=== PATIENT | female | born 1970 | race African-American/Black ===

== ENCOUNTER 2018-03-24 22:50 | Inpatient (IN) | payer BC ==
[~2018-03-24] VITALS: Ht 162.6 cm; Wt 87.1 kg
[~2018-03-24 22:50] MED LIST: BENTYL 20 MG TA20 M1 PO; CLONIDINE HCL0.2 M2 PO; COMPAZINE10 MG PO; CREON PO; DARVOCET-N 1001 EACH PO; FISH OIL 500 M1 EACH PO; FISH OIL500 M1 PO; HYDROCHLOROTHIA25 M1 PO; K-DUR 20 MEQ T20 MEQ PO; LANTUS SC; MIRALAX255 GM PO; NORCO 5-325 TA1 EACH PO; NORVASC 5 MG TAB5 MG PO; NOVOLOG100 UNIT/1 SQ; PERCOCET 5-3251 EACH PO; PHENERGAN 25 MG25 M1 PO; PRENATAL; PROMETHAZINE12.5 M1 PO; PROTONIX40 MG PO; TOPROL XL50 MG PO; TRAMADOL 50 MG50 MG PO; ULTRAM 50MG TAB50 MG PO; XANAX 0.5 MG0.5 M1 PO
[2018-03-24 22:54] VITALS: BP 204/120
--- NOTE | 2018-03-24 23:08 | NUR ---
SENT PT TO BATHROOM TO ATTEMPT TO GET A URINE SPECIMEN PRIOR TO GETTING UNDRESSED.
[2018-03-24 23:52] LABS: ABSOLUTE NEUTROPHILS 6.9 thou/uL (1.4-8.2); BASOPHILS 1.4 % (0.0-2.0); EOSINOPHILS 0.5 % (0.0-3.0); HEMATOCRIT 39.2 % (37.0-47.0); HEMOGLOBIN 13.4 gm/dL (12.0-15.0); LYMPHOCYTES 41.7 % (24.0-44.0); MCH 31.1 pg (26.0-34.0); MCHC 34.1 g/dL (28.0-37.0); MCV 90.9 fL (80.0-100.0); MONOCYTES 5.4 % (1.0-8.0); PLATELET COUNT 350 thou/uL (150-400); RBC 4.31 mil/uL (4.20-5.00); RDW 13.4 % (10.5-14.5); WBC 13.5 thou/uL (4.0-11.0)
[2018-03-25] VITALS (7 sets, daily range): BP systolic 140–188; BP diastolic 87–122
[2018-03-25 00:06] LABS: ALBUMIN 3.9 g/dL (3.4-5.0); CALCIUM 9.6 mg/dL (8.5-10.1); CREATININE 0.8 mg/dL (0.6-1.0); POTASSIUM 3.4 mmol/L (3.5-5.1); TOTAL BILIRUBIN 0.2 mg/dL (<0.1-1.0); TOTAL PROTEIN 8.5 g/dL (6.4-8.2)
[2018-03-25 02:39] LABS: URINE BILIRUBIN NEGATIVE (Negative); URINE BLOOD TRACE (Negative); URINE CLARITY CLEAR; URINE COLOR YELLOW; URINE GLUCOSE-RANDOM* 1+ (Negative); URINE KETONES NEGATIVE (Negative); URINE LEUKOCYTES-REFLEX NEGATIVE (Negative); URINE NITRITE-REFLEX NEGATIVE (Negative); URINE PROTEIN (DIPSTICK) NEGATIVE (Negative); URINE UROBILINOGEN 0.2 E.U./dl (0.2-1.0)
[2018-03-25] MEDS ORDERED: NEURONTIN600 MG PO (05:26)
[2018-03-25] MEDS ORDERED: PERCOCET 10-321 EACH PO (05:28)
[2018-03-25] MEDS ORDERED: METOPROLOL ER-1 EACH PO (05:30)
[2018-03-25] MEDS ORDERED: LISINOPRIL40 MG PO (05:32)
[2018-03-25] MEDS ORDERED: NOVOLOG100 UNIT/1 SUBQ (05:33)
--- NOTE | 2018-03-25 06:39 | NUR ---
PT CAME TO THE UNIT FROM THE ED AROUND 0330. VSS BUT BP. BP WAS ELEVATED, CLONIDINE GIVEN. PT A&0X4. INTERMITENTLY TEARFUL. PT COMPLAINED OF RUQ AND LLQ ABD PAIN, HYDROMORPHNE GIVEN. ASSESSMENTS AND MEDS GIVEN ARE DOCUMENTED. FSBS HAS BEEN TRENDING UP SINCE PT GOT TO THE UNIT. BLOOD SUGAR AT 0512 WAS 183, THE THEN CURRENT INFUSION OF D10 AT 150 ML/HR, WAS REDUCED TO 75ML/HR(PER ANGELLA SOLIS'S ORDER. AN HOUR LATER WHEN BS WAS RECHECKED, FSBS WAS 270, ANGELLA SOLIS NOTIFIED, AND D10 WAS ORDERED TO BE D/C. THIS WAS DONE AT 0630 THIS AM. PT DENIES CURRENT N/V. PT APPEARS TO BE IN NO APPARENT DISTRESS, WILL CONTINUE TO MONITOR.
--- NOTE | 2018-03-25 14:11 | NUR ---
INITIAL ASSESSMENT: Reviewed chart and spoke with nursing and attending physician. Pt was admitted from home due to chronic pancreatitis/nausea/vomiting/hypoglycemia. HOME HEALTH TRAVEL OT consult ordered. Psych consult for hx of depression. SW met with pt at bedside. Introduced role of SW. Pt is alert/orientated x 4. Pt reports she lives at home with her spouse. Prior to admission, pt was independent with ADLs. No use of DME. No hx of HH services or SNF/Rehab placement. Pt reports that she has PCP at [facility], but is unable to recall name of PCP. Pt requested SW to confirm that her chart no longer states that she has Medicaid. Pt states she used to have Medicaid, but is now on her 's insurance. SW verified that her [employer] policy is the only insurance listed. Pt states she is nervous about the winter weather and the tests that she may be having tomorrow. Pt unable to recall what testing she will have. Awaiting input from psych. SW is following to assist as needed with discharge planning.
--- NOTE | 2018-03-25 14:23 | NUR ---
Assumed care of patient at 0700. Vitals have been stable. Patient is alert and oriented x4, but displays labile moods. Very pleasant, happy, joking with staff and then a few minutes later is sobbing and very unhappy. Psych consult called, awaiting Dr. Graham to round. CT abdomen obtained and results as charted - Dr. Anderson consulted due to CT abdomen results and patient is now off unit for pelvic US. Still with complaints of right upper and left lower abdominal pain. Partially controlled with PRN meds. No complaints of nausea. Has been kept NPO except meds. D5 infusing per orders. Accuchecks q 6 hours - blood sugars have stayed stable. Patient up ad christianne in room, steady gait. Has walked hallway with staff a few times. Not yet progressing towards POC. Will continue to monitor.
[2018-03-26 04:49] VITALS: BP 144/86
[2018-03-26 05:21] LABS: HEMATOCRIT 35.7 % (37.0-47.0); HEMOGLOBIN 11.6 gm/dL (12.0-15.0); MCH 30.2 pg (26.0-34.0); MCHC 32.5 g/dL (28.0-37.0); MCV 92.9 fL (80.0-100.0); RBC 3.84 mil/uL (4.20-5.00); RDW 14.1 % (10.5-14.5); WBC 8.6 thou/uL (4.0-11.0)
--- NOTE | 2018-03-26 05:30 | NUR ---
Pt. has requested for IV benadryl x1 dose last night to help with itching and to help her rest. She refused to take po benadryl. MENTAL HEALTH COUNSELOR notified and order received. She has labile moods , pleasant at times ,crying one minute then singing then agitated and paranoid. One of medical staff specialist heard her crying and when he went to her room to check on her she was very upset and screaming. Pt. reassured that staff is concern about her and went to room to make sure she is safe. She has requested for her pain med every 3 hrs . She informed me that her pain med is supposed to be given every 2 hrs instead of every 3 hrs. Despite explaining to her what the doctor has ordered and showing it to her she still is very insistent that it is supposed to be given every 2 hrs. She verbalized " I am the patient and I know what was ordered for me ". Informed her that order has not changed since arrival on the floor. She requested for the rn discharge and verbalized she knows of nurses that has been found in the closet in rigor mortis due to narcotics. While waiting for rn discharge to talk to her , she has been pacing in hallway and walking very fast. lasting room supervisor talked to pt. and informed her about frequency of her pain med. Pt. has been awake most of the night and only slept for a short period of time this am. While awake she requested for snacks and drinks.No nausea or vomiting. She is in a pleasant mood again this am and appreciative of the care she receives. Will continue to monitor.
[2018-03-26 05:37] LABS: ALBUMIN 3.4 g/dL (3.4-5.0); CALCIUM 9.3 mg/dL (8.5-10.1); CREATININE 0.9 mg/dL (0.6-1.0); PHOSPHORUS 3.1 mg/dL (2.5-4.9); POTASSIUM 4.2 mmol/L (3.5-5.1)
--- NOTE | 2018-03-26 06:36 | NUR ---
Pt. very tearful this am and talking about a friend who has speech impediment and feels sorry for him. Reassurance given.
[2018-03-26 07:19] VITALS: BP 155/90
[2018-03-26 11:52] VITALS: BP 156/104
[2018-03-26 12:29] VITALS: BP 156/104
--- NOTE | 2018-03-26 13:28 | NUR ---
Assumed care of patient at 0700. Vitals have been stable. Alert and oriented x4. Still with labile affect; crying at times, otherwise very happy and singing / laughing. Complaints of abdominal pain, partially controlled with PRN Dilaudid. Denies nausea. Tolerating diet. Up ad christianne in room. Walked hallways with nursing this morning. Dr Anderson rounded this morning and states pelvic US shows decrease in cyst size. Discharge orders received. Reviewed instructions with patient at bedside. Verbalizes understanding. IV and telemetry discontinued. Belongings gathered. Patient states no items locked in security and no meds in pharmacy. Awaiting ride at this time. Will transport via wheelchair to discharge home.
--- NOTE | 2018-03-26 14:46 | NUR ---
DISCHARGE NOTE: SW reviewed chart and spoke with nursing and attending physician. Psych consulted and attempted to evaluate pt yesterday. Pt declined consultation. Pt is medically stable for discharge home today. No discharge needs identified at this time. SW is available to assist should needs arise.
== END 2018-03-26 15:01 | disposition home or self-care (01) | DRG 758 ==
LOC: ER 22:50 → 3W 03-25 01:41 → EROBS 03-25 01:41 → 3W 03-25 03:11 → ENTRNSPT 03-26 14:38 → EDTRNSPTSTS 03-26 14:41 → 3W 03-26 15:01
PROVIDERS: Emergency Medicine; ADMIT Hospitalist
DX: N76.0 Acute vaginitis (principal); K86.1 Other chronic pancreatitis; F11.20 Opioid dependence, uncomplicated; A54.9 Gonococcal infection, unspecified; E10.649 Type 1 diabetes mellitus with hypoglycemia without coma; G89.29 Other chronic pain; R10.9 Unspecified abdominal pain; E87.6 Hypokalemia; N83.209 Unspecified ovarian cyst, unspecified side; I10 Essential (primary) hypertension; E10.40 Type 1 diabetes mellitus with diabetic neuropathy, unspecified; Z87.891 Personal history of nicotine dependence; Z90.81 Acquired absence of spleen; Z88.6 Allergy status to analgesic agent; Z88.8 Allergy status to other drugs, medicaments and biological substances
CPT/HCPCS: 10879

== ENCOUNTER 2018-04-07 20:17 | Inpatient (IN) | payer BC ==
[~2018-04-07] VITALS: Ht 165.1 cm; Wt 86.2 kg
[~2018-04-07 20:17] MED LIST changes: +CREON DR 12,001 EACH PO; -CREON PO; +LISINOPRIL40 MG PO; +METOPROLOL ER-1 EACH PO; +NEURONTIN600 MG PO; +NOVOLOG100 UNIT/1 SUBQ; +PERCOCET 10-321 EACH PO
[2018-04-07 20:18] VITALS: BP 182/111
[2018-04-07 20:52] LABS: HEMATOCRIT 37.4 % (37.0-47.0); HEMOGLOBIN 12.5 gm/dL (12.0-15.0); MCH 31.1 pg (26.0-34.0); MCHC 33.4 g/dL (28.0-37.0); MCV 93.3 fL (80.0-100.0); PLATELET COUNT 339 thou/uL (150-400); RBC 4.02 mil/uL (4.20-5.00); RDW 14.4 % (10.5-14.5); WBC 10.5 thou/uL (4.0-11.0)
[2018-04-07 21:01] LABS: CALCIUM 9.5 mg/dL (8.5-10.1); CREATININE 0.9 mg/dL (0.6-1.0)
[2018-04-07 21:03] LABS: POTASSIUM 2.5 mmol/L (3.5-5.1)
[2018-04-07 21:07] LABS: ALBUMIN 3.8 g/dL (3.4-5.0); TOTAL BILIRUBIN 0.1 mg/dL (<0.1-1.0); TOTAL PROTEIN 7.9 g/dL (6.4-8.2)
[2018-04-07 21:32] LABS: MAGNESIUM 1.5 mg/dL (1.8-2.4); PHOSPHORUS 1.4 mg/dL (2.5-4.9)
[2018-04-07 21:52] LABS: ABSOLUTE NEUTROPHILS 3.5 thou/uL (1.4-8.2)
[2018-04-07 21:53] LABS: POLYCHROMASIA 1+; SCHISTOCYTES FEW; TARGET CELLS 1+
[2018-04-07 21:54] LABS: ANISOCYTOSIS 1+; PLATELET ESTIMATE NORMAL
[2018-04-08] VITALS (25 sets, daily range): BP systolic 127–173; BP diastolic 74–106
--- NOTE | 2018-04-08 00:13 | NUR ---
PATIENT GLUCOSE TO DECREASE TO CRITICALLY LOW LEVELS, RN SUSPECTED PATIENT USING HOME DOSE OF INSULIN, SECURITY CONTACTED TO REVIEW ITEMS IN PURSE. PATIENT VERY UPSET, YELLING AT STAFF AND STATES "I AM LEAVING, I AM GOING HOME, DO NOT TOUCH ME." PT STATED STAFF LOOKS LIKE THEY TAKE DRUGS AND DID NOT ATTEND NURSING SCHOOL. THREATENS STAFF WITH LAWSUITS AND DEMANDS STAFF TO LEAVE ROOM. ADVISED PATIENT THAT LEAVING AMA WITH LOW BLOOD GLUCOSE IS DETRIMENTAL TO HEALTH AND WOULD BE BENEFICIAL TO STAY AND BE TREATED. CHARGE NURSE KYLER IN R0OM THROUGHOUT ISSUE, ALSO ADVISING PATIENT TO REMAIN IN ER. PATIENT INSISTS ON LEAVING. INFORMED PATIENT OF NEED TO SIGN AMA FORM, HAVE IVs D/Thomas. PATIENT UNABLE TO HEAR WHAT STAFF MEMBERS ARE SAYING, CONTINUES TO TALK OVER THEM, DEMANDS TO SPEAK ONLY TO PHYSICIAN W/O OTHER STAFF MEMBERS IN ROOM. INFORMED PATIENT THAT SECURITY WILL STAY IN ROOM WITH PATIENT AND PHYSICIAN. PATIENT AGREEABLE TO REMAIN PATIENT AND BE TREATED FOR LOW BLOOD GLUCOSE.
--- NOTE | 2018-04-08 01:21 | NUR ---
pt arrived from ED via stretcher in stable condition around 0045. pt oriented to room and surroundings. allowed for questions. will admit pt to unit and carry out orders. pt was placed on telemtry.
[2018-04-08] MEDS ORDERED: TOPROL XL25 MG PO (01:29)
[2018-04-08] MEDS ORDERED: OMEGA-31000 M1 PO (01:32)
--- NOTE | 2018-04-08 05:55 | NUR ---
PT CURRENTLY SITTING UP IN BED WASHING SELF. PT SR ON MONITOR REMAINS ON RA SATS 100% PT REMAINS HTN, GROWTH MEDIA MIXER MUSHROOM AWARE. PT AM LABS TO BE DRAWN. PT REQUIRED SEVERAL DOSES OF PAIN MEDICATION THROUGHOUT SHIFT.
[2018-04-08 06:37] LABS: CALCIUM 8.5 mg/dL (8.5-10.1); CREATININE 0.7 mg/dL (0.6-1.0); MAGNESIUM 2.3 mg/dL (1.8-2.4); PHOSPHORUS 2.8 mg/dL (2.5-4.9)
[2018-04-08 06:40] LABS: POTASSIUM 4.6 mmol/L (3.5-5.1)
--- NOTE | 2018-04-08 08:31 | EKG ---
[address] [place] [address] ELECTROCARDIOGRAM REPORT Name: FITO PATTERSON Evelyne Room #: 236-P ADM IN M.R.#: [id number] ������������������ Admission: 04/07/18 ������������������ Attend Phys: Antony Eduardo MD Discharge: ������������������ Date of : 72 Report #: [id number] ����������������������������������������������������������������� [id number] THIS REPORT FOR: //name// [facility] ED Test Date: 2018-04-07 Test Time: 20:31:57 Pat Name: FITO PATTERSON Department: Room: 236 Gender: F Certified Respiratory Therapist: lucinda : 1970 Requested By: Jose Rollins Order Number: [id number] MD: Randall Potter Measurements Intervals [place] Rate: 108 P: 61 NE: 187 QRS: 28 QRSD: 90 T: -8 QT: 329 QTc: 441 Interpretive Statements Sinus tachycardia Borderline T abnormalities, inferior leads Artifact in lead(s) I,II,III,aVR,aVL Compared to ECG 03/01/2010 13:38:05 T-wave abnormality now present Electronically Signed On 04-08-2018 8:30:42 DISTRIBUTION DRIVER by Randlal Potter [email or web address] ��������������������������������������������� <ELECTRONICALLY SIGNED> ���������������������������������������� By: Randall Potter MD, [facility] ��������������������������������������������� 04/08/18 0830 30 30 Randall Potter MD, [facility] /EPI
--- NOTE | 2018-04-08 10:30 | NUR ---
PT ALERT, ORIENTED. PT IRRITABLE INTERMITTENTLY, THEN WHEN RN ADMINISTERING PAIN MED PER HER REQUEST, SHE IS VERY PLEASANT AND TALKATIVE. WHEN DR. HERRING ROUNDED, PT HAD NO EYE CONTACT WITH HIM AND STARED IN THE OTHER DIRECTIONS DURING THE ENTIRE CONVERSATION. MORPHINE IV GIVEN FOR C/O OF ABDOMINAL PAIN ALONG WITH ZOFRAN AND BENADRYL IV PER HER REQUEST. SR, ROOM AIR, LUNGS CLEAR/DIM, ABD SOFT TENDER, CLEAR LIQUID DIET HOWEVER DEFERRING CLEAR LIQUID DIET. VOIDING IN BEDSIDE COMMODE. TRANSFER ORDER CC TELE PENDING.
--- NOTE | 2018-04-08 16:45 | NUR ---
DR. ARREAGA PRESENT TO SEE PT. PT CALM, NO DISTRESS. REPORT GIVEN TO TIGIST DICKERSON. PT TRANSFERRING TO TELE ROOM #353 PER WHEELCHAIR.
--- NOTE | 2018-04-08 19:03 | NUR ---
ASSUMED CARE OF PT THIS EVENING A TRANSFER FROM ICU. ALERT AND ORIENETD TIMES FOUR. C/O PAIN PRN PAIN MEDICATION GIVEN WITH SOME RELEIF. IVF INFUSING PER ORDER. PT UP AB LEO WITH STEADY GAIT. PT SLOWLY PROGRESSING TOWRADS POC GOALS.
[2018-04-09 01:10] VITALS: BP 147/98
--- NOTE | 2018-04-09 03:59 | NUR ---
Assumed care of pt at 1900. Pt a&o x4. Room air. Able to ambulate independently in room. Q4h accu checks. Pt requests something to eat. LIFE ENRICHMENT ASSISTANT on duty notified, new order noted. LIFE ENRICHMENT ASSISTANT on duty also notified of pt blood sugar trending up. LIFE ENRICHMENT ASSISTANT states to continue to monitor pt blood sugar and might need a low dose sliding scale insulin in the am. Pt complaints of abd pain. Prn pain med administered. Call light within reach. Will continue to monitor and assist with needs.
[2018-04-09 05:29] VITALS: BP 140/70
--- NOTE | 2018-04-09 09:30 | NUR ---
PT WAS ASSESS AND ASKED FOR BENEDRYL WHICH WAS DISCONTINUED..SHE BECAME VERY ANGRY AND IMMEDIATELY STATED DR LOPEZ WAS INAPPROPRIATE WITH HER AND SHE WANTED TO SEE HIM. NURSE CYLINDER WORKER RUFINO WAS CALLED AND SHE CALLED TO BOTH SPEAK WITH PATIENT.
--- NOTE | 2018-04-09 11:00 | NUR ---
PT IV X 2 DC;D AND INFORMED HER I WOULD BE BACK WITH DISCHARGE PAPERWORK. A FEW MINUTES LATER SHE WAS SPOTTED BY DIRECTOR OF PRODUCT DESIGN LEAVING ON ELEVATOR WITH FAMILY MEMBER BEFORE DISCHARGE WORK WAS COMPLETED POR SIGNED.
[2018-04-09 11:04] VITALS: BP 140/70
== END 2018-04-09 11:00 | disposition home or self-care (01) | DRG 638 ==
LOC: ER 20:17 → EROBS 22:01 → ICU 22:01 → 3W 22:01 → ICU 04-08 00:37 → 3W 04-08 17:26
PROVIDERS: Emergency Medicine; Nurse Practitioner Family; ADMIT Internal Medicine
DX: E10.649 Type 1 diabetes mellitus with hypoglycemia without coma (principal); K86.1 Other chronic pancreatitis; I10 Essential (primary) hypertension; E10.42 Type 1 diabetes mellitus with diabetic polyneuropathy; R10.9 Unspecified abdominal pain; E87.6 Hypokalemia; E83.42 Hypomagnesemia; E78.00 Pure hypercholesterolemia, unspecified; E83.39 Other disorders of phosphorus metabolism; G89.4 Chronic pain syndrome; K86.89 Other specified diseases of pancreas; Z90.81 Acquired absence of spleen; Z88.6 Allergy status to analgesic agent; Z88.8 Allergy status to other drugs, medicaments and biological substances; Z87.891 Personal history of nicotine dependence; Z79.4 Long term (current) use of insulin; Z79.899 Other long term (current) drug therapy
CPT/HCPCS: 10879

== ENCOUNTER 2018-04-10 22:58 | Inpatient (IN) | payer BC ==
[~2018-04-10] VITALS: Ht 162.6 cm; Wt 91.4 kg
[~2018-04-10 22:58] MED LIST changes: +OMEGA-31000 M1 PO; +TOPROL XL25 MG PO
[2018-04-10 23:04] VITALS: BP 158/91
--- NOTE | 2018-04-10 23:25 | NUR ---
ATTEMPTED TO GET BLOOD SUGAR IN TRIAGE. PT WAS SITTING ON CHAIR IN TRIAGE AND WAS VERY ANXIOUS. PT STATES THAT SHE IS NOT FEELING WELL AND HER BLOOD SUGAR IS LOW. RN LOOKED AWAY FOR A MOMENT AND IN THAT MOMENT PT HAD WAS FOUND ON THE FLOOR FACEDOWN. PT WAS NOT RESPONDING TO RN INITIALLY AFTER THE FALL. RN CALLED FOR HELP AND PT ASSISTED TO HER BACK AND C-SPINE MAINTAINED UNTIL A C-COLLAR WAS PLACED ON PT. BED BROUGHT OUT FROM THE BACK FOR PT. PT WAS NOT ABLE TO FOCUS ON QUESTIONS WHEN SHE WAS ASKED. PRIOR TO GETTING PT UP FROM FLOOR, PT SUDDENLY JERKED TO SITTING UP POSITION AND ASSISTED TO A SIDE LYING POSITION UNTIL PT CALMED. PT HAD WOKE UP AND ASKED, "WHAT IS GOING ON WITH ME?" C-COLLAR WAS PLACED ON PT AND THEN LIFTED TO BED. BED WAS PUSHED TO ROOM 8. IN ROUTE TO ROOM, PT FLOPPED IN THE BED AND NEARLY CAME OUT OF THE BED SEVERAL TIMES. PT WOULD THEN SAY, "I'M SORRY." PT BROUGHT TO ROOM 8 AND PRIMARY NURSE TOOK OVER CARE.
--- NOTE | 2018-04-10 23:46 | NUR ---
LEFT FRIDAY, FROM 356
[2018-04-11] VITALS (13 sets, daily range): BP systolic 145–191; BP diastolic 80–162
[2018-04-11 00:10] LABS: HEMOGLOBIN 13.1 gm/dL (12.0-15.0); MCH 31.3 pg (26.0-34.0); MCHC 33.7 g/dL (28.0-37.0); MCV 93.1 fL (80.0-100.0); PLATELET COUNT 357 thou/uL (150-400); RBC 4.19 mil/uL (4.20-5.00); RDW 14.3 % (10.5-14.5); WBC 6.7 thou/uL (4.0-11.0)
[2018-04-11 00:27] LABS: ANION GAP 11 mmol/L (7-16); BUN 11 mg/dL (7-18); CALCIUM 9.8 mg/dL (8.5-10.1); CHLORIDE 105 mmol/L (98-107); CO2 28 mmol/L (21-32); GLUCOSE 56 mg/dL (74-106); SODIUM 144 mmol/L (136-145)
[2018-04-11 00:36] LABS: ALBUMIN 3.8 g/dL (3.4-5.0); LIPASE 38 U/L (73-393); SGOT 18 U/L (15-37); SGPT 29 U/L (30-65); TOTAL BILIRUBIN 0.1 mg/dL (<0.1-1.0); TROPONIN-I <0.06 ng/mL (<0.06)
[2018-04-11 00:44] LABS: ABSOLUTE NEUTROPHILS 2.1 thou/uL (1.4-8.2)
[2018-04-11 01:05] LABS: URINE BILIRUBIN NEGATIVE (Negative); URINE BLOOD 2+ (Negative); URINE CLARITY CLEAR; URINE COLOR YELLOW; URINE GLUCOSE-RANDOM* NEGATIVE (Negative); URINE KETONES NEGATIVE (Negative); URINE LEUKOCYTES-REFLEX NEGATIVE (Negative); URINE NITRITE-REFLEX NEGATIVE (Negative); URINE PROTEIN (DIPSTICK) NEGATIVE (Negative); URINE UROBILINOGEN 0.2 E.U./dl (0.2-1.0)
[2018-04-11 01:12] LABS: AMP/METHAMP Negative (Negative); BARBITURATES Negative (Negative); BENZODIAZEPINES Negative (Negative); COCAINE Negative (Negative); METHADONE Negative (Negative); OPIATES POSITIVE (Negative); PCP POSITIVE (Negative)
[2018-04-11 01:12] LABS: SALICYLATE 5.8 mg/dL (2.8-20.0)
[2018-04-11 01:30] LABS: BACTERIA-REFLEX None Seen /HPF (None Seen); CRYSTALS None Seen /LPF (None Seen); HYALINE CASTS 0-3 Few /LPF (None Seen); MUCUS 0-3 Light strn/LPF (None Seen); SQUAMOUS >10 Many /LPF (0-3); TRANSITIONAL EPITHEL CELL 0-3 Few /LPF (None Seen); URINE RBC 0-2 Rare /HPF (0-2); URINE WBC-REFLEX None Seen /HPF (0-5)
--- NOTE | 2018-04-11 02:52 | NUR ---
PT TOLD THIS NURSE "YOU'RE NOT MY NURSE ANYMORE", STATING ASSUMPTION THAT THIS NURSE WAS ACCUSING PT OF USING MEDICATIONS OR DRUGS. PT ASKED THIS NURSE FOR NAME AND NAME WAS GIVEN, PT THEN WROTE DOWN THIS NURSES NAME AND THE TIME ON A PINK STICKY NOTE THAT WAS ON BIBLE, STATING WOULD REPORT THIS NURSE.
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
--- NOTE | 2018-04-11 07:17 | NUR ---
0300: PT ARRIVED TO ICU FROM ED FOR HYPOGLYCEMIA, PT TRANSFERRED TO ICU BED AND CONNECTED TO MONITORS PER ICU STANDARDS. BENDING PRESS OPERATOR MARY CARED FOR PATIENT UNTIL 0500 AND GAVE THIS RN REPORT, DURING HER CARE PT RECEIVED OXYCODONE AND COMPAZINE AND STARTED IVF'S PER CELLOPHANE BAG MACHINE OPERATOR VIVIANA NEGRON. SEE BLOOD GLUCOSES PER ACCU DOSES, BG INCREASED AFTER TURKEY SANDWICH, CHASE CRACKERS AND SODA. ADMISSION COMPLETE, VSS, NO DISTRESS NOTED. NOTIFIED MARIANELA MICHELLE OF ELEVATED BG 225 - ORDER TO DECREASE D5W IVF TO 50ML/HR AND TITRATE ACCORDING TO BG'S. PT CURRENTLY RESTING QUIETLY WITH EYES CLOSED, PLEASANTLY. REPORT GIVEN TO ROZ ESCOTO.
--- NOTE | 2018-04-11 12:48 | EKG ---
[place] [address] [facility] [place] [address] ELECTROCARDIOGRAM REPORT Name: FITO PATTERSON Evelyne Room #: 244-P ADM IN M.R.#: [id number] ������������������ Admission: 04/11/18 ������������������ Attend Phys: Antony Eduardo MD Discharge: ������������������ Date of : 72 Report #: [id number] ����������������������������������������������������������������� [id number] THIS REPORT FOR: //name// [facility] ED Test Date: 2018-04-11 Test Time: 00:01:39 Pat Name: FITO PATTERSON Department: Room: 244 Gender: F Dev Technical Mgr: CHIKI : 1970 Requested By: Guanaco Rome Order Number: [id number] MD: Randall Potter Measurements Intervals [place] Rate: 102 P: 63 GA: 173 QRS: 52 QRSD: 88 T: -44 QT: 348 QTc: 454 Interpretive Statements Sinus tachycardia Probable LVH with secondary repol abnrm Compared to ECG 04/07/2018 20:31:57 Nonspecific change in the T wave abnormality Electronically Signed On 04-11-2018 12:48:44 PUBLIC INFORMATION SPECIALIST by Randall Potter [email or web address] ��������������������������������������������� <ELECTRONICALLY SIGNED> ���������������������������������������� By: Randall Potter MD, [facility] ��������������������������������������������� 04/11/18 1248 0001 0001 Randall Potter MD, [facility] /EPI
--- NOTE | 2018-04-11 16:29 | NUR ---
PT BLOOD SUGAR ELEVATED AT SHIFT CHANGE. D5 FLUIDS D/C'D. NS STARTED. DR SALAMANCA AT BEDSIDE AND NEW ORDERS OBTAINED FOR SSI. PT HYPOGLYCEMIC AT LUNCHTIME, GIVEN APPLE JUICE AND MEAL TRAY. PT STATED SHE FELT NAUSEAOUS AND THEN LATER ASKED FOR A SECOND MEAL TRAY. PT EDUCATED IN CONTROLLING CARB INTAKE AND BLOOD SUGARS. PT DISINTERESTED IN EDUCATION. PT C/O CONSTANT ABD PAIN, REQUESTING A PAIN SHOT AND PRN MEDS. PT HAS SLEPT MOST OF THE AFTERNOON. PT MED/SURG STATUS, AWAITING BED ASSIGNMENT.
--- NOTE | 2018-04-11 20:47 | NUR ---
ASSESSMENT PER DOCUMENTATION. PT'S VSS, NO DISTRESS NOTED ON ROOM AIR. PT C/O 10/ ABDOMINAL PAIN - NOT NEW, OXYCODONE GIVEN - SEE EMAR. PT RESTED QUIETLY WITH EYES CLOSED. PT TRANSFERRED TO ROOM 240 W/ MED SURG ORDERS, PT STABLE PRIOR TO TRANSFER. NS IVF INSUING WITHOUT DIFFICULTY. PT VOICED NO CONCERNS. REPORT GIVEN TO TIGIST DE LA PAZ.
[2018-04-12 00:09] LABS: CORTISOL RANDOM 12.9 ug/dL (())
[2018-04-12 04:19] VITALS: BP 155/104
--- NOTE | 2018-04-12 05:29 | NUR ---
ASSUMED PT CARE 2200. PT ALERT AND ORIENTED. REASSESSMENT COMPLETE. PT REPORTS ABD PAIN /, SEMI CONTROLLED WITH MEDICATION. IV DRESSING C/D/I, NO SIGNS OF INFILTRATION. VSS. BLOOD SUGAR LEVEL TREATED AT HS, WILL DOUBLE CHECK 0600. PT CALL LIGHT AND PERSONAL BELONINGS WIOTHIN REACH. WILL CONTINUE POC UNTIL EOS.
[2018-04-12 06:52] LABS: ALBUMIN 3.2 g/dL (3.4-5.0); CALCIUM 9.3 mg/dL (8.5-10.1); MAGNESIUM 1.7 mg/dL (1.8-2.4); POTASSIUM 4.2 mmol/L (3.5-5.1); TOTAL BILIRUBIN 0.1 mg/dL (<0.1-1.0); TOTAL PROTEIN 6.8 g/dL (6.4-8.2)
[2018-04-12 08:00] VITALS: BP 160/101
[2018-04-12] MEDS ORDERED: GABAPENTIN 100100 MG PO (10:45)
[2018-04-12] MEDS ORDERED: ZOFRAN ODT4 MG DISSOLVE (10:45)
[2018-04-12] MEDS ORDERED: ACETAMINOPHEN325 M1 PO (10:45)
[2018-04-12 11:40] VITALS: BP 155/104
--- NOTE | 2018-04-12 12:01 | NUR ---
PT ASSESSED AT START OF SHIFT. PT VERY CALM AND PLEASANT. DR. SALAMANCA IN TO SEE PT AND DISCHARGE HER. HERE TO TAKE PT HOME. IV DC'D AND PT DRESSING TO GO HOME. INFORMED PT I WOULD BE RIGHT BACK W/ HER PAPERWORK AND SHE COULD GO. WENT BACK TO THE ROOM AND PT GONE W/ ALL BELONGINGS. CALLED DRIER OPERATOR HEAD TO PAGE PT BUT NO ANSWER. CALLED CELL AND HE ANSWERED. EXPLAINED PT LEFT PAPERWORK AND HER PRESCRIPTIONS. HE SAID THEY WERE ON THE FREEWAY ALREADY. EXPLAINED TO HIM WHENEVER SHE IS IN THE HOSPITAL THERE IS PAPERWORK SHE NEEDS TO SIGN BEFORE DISCHARGE AND HE MAY NEED TO MAKE SURE SHE GETS THAT. HE DID NOT COMMIT TO RETURNING FOR PAPERS OR PRESCRIPTIONS. RACE BOARD ATTENDANT AND DR. SALAMANCA NOTIFIED.
[2018-04-12 13:11] LABS: C-PEPTIDE 3.8 ng/mL (1.1-4.4); INSULIN 19.3 uIU/mL (2.6-24.9)
== END 2018-04-12 12:00 | disposition home or self-care (01) | DRG 638 ==
LOC: ER 22:58 → EROBS 04-11 01:25 → ICU 04-11 03:21 → 4E 04-11 22:09
PROVIDERS: Emergency Medicine; ADMIT Internal Medicine
DX: E10.649 Type 1 diabetes mellitus with hypoglycemia without coma (principal); F11.20 Opioid dependence, uncomplicated; K86.1 Other chronic pancreatitis; G89.4 Chronic pain syndrome; F16.10 Hallucinogen abuse, uncomplicated; I10 Essential (primary) hypertension; E87.6 Hypokalemia; F41.9 Anxiety disorder, unspecified; F32.9 Major depressive disorder, single episode, unspecified; F25.9 Schizoaffective disorder, unspecified; N83.202 Unspecified ovarian cyst, left side; F60.3 Borderline personality disorder; E10.42 Type 1 diabetes mellitus with diabetic polyneuropathy; Z90.81 Acquired absence of spleen; Z79.899 Other long term (current) drug therapy; Z88.5 Allergy status to narcotic agent; Z88.6 Allergy status to analgesic agent; Z88.8 Allergy status to other drugs, medicaments and biological substances; Z87.891 Personal history of nicotine dependence; Z91.14 Patient's other noncompliance with medication regimen; Z90.411 Acquired partial absence of pancreas
CPT/HCPCS: 10183

== ENCOUNTER 2018-05-09 02:59 | Inpatient (IN) | payer BC ==
[2018-05-09] VITALS (7 sets, daily range): BP systolic 145–211; BP diastolic 92–116
[~2018-05-09] VITALS: Ht 162.6 cm; Wt 90.3 kg
--- NOTE | ~2018-05-09 | HC ---
[facility] [place] [address] CONSULTATION Name: FITO PATTERSON Room #: 358-P DIS IN M.R.#: [id number] Admission: 05/09/18 ������������������ Attend Phys: Antony Eduardo MD Discharge: 05/10/18 ������������������ Date of : 72 Report #: [id number] THIS REPORT FOR: //name// CC: Darrian Eduardo DATE OF SERVICE: 05/10/2018 IDENTIFICATION: Psychiatric consultation is requested for psychosis. HISTORY OF PRESENT ILLNESS: The patient is a 48-year-old female with a history of recurrent PCP abuse. She has presented to the hospital previously with symptoms of psychosis including delusions. She has been noted to be irritable and paranoid with staff documenting nursing interventions, talking about becoming a surgeon and suing the hospital. She has left the hospital previously against medical advice. It is also noted that when she does leave the hospital, she takes every item with her that she can including all soaps and other hospitality items. She has previously been seen by Dr. Graham in consultation in 03/2018, but the patient was uncooperative with interview at that time. Currently, it is unclear whether the patient has psychosis in the absence of PCP abuse. In addition to the above, it is noted that the patient has presented recurrently with hypoglycemia. It is suspected that she may be administering extra insulin in order to gain admission to the hospital. She is noted to have some drug-seeking behavior, asking frequently for IV Benadryl. On interview today, the patient states that she is "fine" and just wants to be left to sleep. ALLERGIES: List is reviewed available in the chart. PSYCHIATRIC MEDICATION ALLERGIES INCLUDE THORAZINE AND HALDOL. MEDICATIONS: Reviewed include Seroquel 25 mg at bedtime. PAST MEDICAL HISTORY: Insulin-dependent diabetes, chronic pancreatitis, chronic pain, hypertension, peripheral neuropathy. FAMILY HISTORY: Unknown. SOCIAL HISTORY: The patient is reported to have a history of smoking cigarettes. It appears that she lives independently. LABORATORIES: Urine drug screen was positive for PCP. MENTAL STATUS EXAMINATION: She is resting in hospital bed with all of the lights out at 10:00 in the morning. She is immediately suspicious and paranoid when I introduced myself as the psychiatrist. She states that she is "fine." [facility] [address] [place] [address] CONSULTATION Name: FITO PATTERSON Room #: 358-P DIS IN M.R.#: [id number] Admission: 05/09/18 ������������������ Attend Phys: Antony Eduardo MD Discharge: 05/10/18 ������������������ Date of : 72 Report #: [id number] She does deny any suicidal or homicidal ideation. She does demonstrate paranoid delusions. Affect irritable. Thought process concrete. Insight and judgment poor. DIAGNOSIS: Psychosis, not otherwise specified, rule out PCP-induced psychosis versus chronic schizophrenia. PLAN: Increase nighttime Seroquel to 100 mg and Seroquel 50 mg every 4 hours as needed and in case of severe agitation, we will utilize Geodon 10 mg intramuscular every 6 hours as needed. From the psychiatric standpoint, the patient can discharged to home at her request or when she is medically stable. Thank you for this consultation. We will follow up as needed. ��������������������������������������������� ���������������������������������������� By: ��������������������������������������������� 1020 1405 Tila Ryan MD /nt
[~2018-05-09 02:59] MED LIST changes: +ACETAMINOPHEN325 M1 PO; +GABAPENTIN 100100 MG PO; +ZOFRAN ODT4 MG DISSOLVE
[2018-05-09 03:51] LABS: ABSOLUTE NEUTROPHILS 4.2 thou/uL (1.4-8.2); BASOPHILS 0.6 % (0.0-2.0); EOSINOPHILS 0.4 % (0.0-3.0); HEMOGLOBIN 13.1 gm/dL (12.0-15.0); LYMPHOCYTES 49.1 % (24.0-44.0); MCHC 33.7 g/dL (28.0-37.0); MCV 92.1 fL (80.0-100.0); MONOCYTES 5.6 % (1.0-8.0); PLATELET COUNT 354 thou/uL (150-400); POLYS 44.3 % (36.0-66.0); RBC 4.23 mil/uL (4.20-5.00); RDW 14.3 % (10.5-14.5); WBC 9.4 thou/uL (4.0-11.0)
[2018-05-09 03:51] LABS: URINE BILIRUBIN NEGATIVE (Negative); URINE BLOOD 1+ (Negative); URINE CLARITY CLEAR; URINE COLOR YELLOW; URINE GLUCOSE-RANDOM* NEGATIVE (Negative); URINE KETONES NEGATIVE (Negative); URINE LEUKOCYTES-REFLEX NEGATIVE (Negative); URINE NITRITE-REFLEX NEGATIVE (Negative); URINE PROTEIN (DIPSTICK) NEGATIVE (Negative); URINE SPECIFIC GRAVITY <= 1.005 (1.005-1.035); URINE UROBILINOGEN 0.2 E.U./dl (0.2-1.0)
[2018-05-09 03:59] LABS: AMP/METHAMP Negative (Negative); BACTERIA-REFLEX None Seen /HPF (None Seen); BARBITURATES Negative (Negative); BENZODIAZEPINES Negative (Negative); CASTS None Seen /LPF (None Seen); COCAINE Negative (Negative); CRYSTALS None Seen /LPF (None Seen); METHADONE Negative (Negative); MUCUS None Seen strn/LPF (None Seen); OPIATES Negative (Negative); PCP POSITIVE (Negative); SQUAMOUS 0-3 Few /LPF (0-3); URINE RBC 0-2 Rare /HPF (0-2); URINE WBC-REFLEX 0-5 Rare /HPF (0-5)
[2018-05-09 04:00] LABS: ANION GAP 9 mmol/L (7-16); BUN 10 mg/dL (7-18); CALCIUM 9.8 mg/dL (8.5-10.1); CHLORIDE 106 mmol/L (98-107); CO2 27 mmol/L (21-32); CREATININE 0.8 mg/dL (0.6-1.0); POTASSIUM 3.4 mmol/L (3.5-5.1); SODIUM 142 mmol/L (136-145)
[2018-05-09 04:05] LABS: ALBUMIN 3.9 g/dL (3.4-5.0); DIRECT BILIRUBIN < 0.1 mg/dL (<0.1-0.3); LIPASE 53 U/L (73-393); SGOT 27 U/L (15-37); SGPT 36 U/L (30-65); TOTAL BILIRUBIN 0.1 mg/dL (<0.1-1.0); TOTAL PROTEIN 8.4 g/dL (6.4-8.2)
[2018-05-09 04:10] LABS: GLUCOSE 25 mg/dL (74-106)
--- NOTE | 2018-05-09 08:30 | NUR ---
PT WAS ADMITTED FROM ED @ 0715...SHE ALTERNATES BETWEEN CRYING AND LAUGHING INAPPROPRIATELY...SHE HAS GRANDIOSE IDEAS " I AM PLANNING ON STARTING SCHOOL TO BECOME A SURGEON"..SHE CAME TO NURSES STATION @ 0900 THIS MORN AND BEGAN HOLLERING " SOMEONE HELP ME RIGHT NOW..THERE ARE SOME DR'S OVER THERE AND I MAY DROP RIGHT HERE AND THEY WILL BE IN TROUBLE FOR NOT HELPING ME" SHE IS ADAMENT ABOUT WANTING IV DILAUDID AND IV PHENERGAN.. AFTER SHE RECEIVED PAIN MEDS SHE BEGAN SINGING.. HER MOODS CHANGE VERY QUICKLY AND TO GREAT EXTREMES..
[2018-05-09] MEDS ORDERED: NEURONTIN600 MG PO (08:45)
[2018-05-09] MEDS ORDERED: PHENERGAN12.5 M2 RECTAL (08:49)
[2018-05-09] MEDS ORDERED: NOVOLOG100 UNIT/1 SUBQ (09:06)
--- NOTE | 2018-05-09 17:55 | NUR ---
PT REPORTS NAUSEA AND VOMITING X 2 DAYS AND REPORTS SHE HAS NOT HAD AND MEDS IN 48 HRS...TOLERATED DIET ON UNIT AND NO EMESIS OBSERVED...
--- NOTE | 2018-05-09 18:28 | NUR ---
PT WAS EATING A LARGE AMOUNT OF FOOD BROUGHT IN BY FAMILY THAT IS NOT ON HER RENAL DIET. I EXPLAINED DR CEDENO WANTS HER TO FOLLOW A RENAL DIET AND PATIENT LAUGHED AT ME.
[2018-05-10 00:15] VITALS: BP 156/108
--- NOTE | 2018-05-10 03:47 | NUR ---
PATIENT IS ALERT AND ORIENTED. PATIENT HAS BEEN RESPECTFUL. PATIENT IS UP AD LEO AND HAS WALKED AROUND THE UNIT. PATIENT IS NSR ON TELE. PATIENTS LBM WAS THE 22ND. PATIENT BLOOD PRESSURE HAS BEEN HIGH PRN HYDRALIZINE ORDERED. PATIENT WAS PROTESTING IV PAIN MEDS BUT HAS ACCEPTED THE PO PAIN MEDS. PATIENT IS ROOM AIR. PATIENT BLOOD GLUCOSE IS STABLE. PATIENT IS RESTING COMFORTABLY IN BED. WCM.
[2018-05-10 04:51] LABS: HEMATOCRIT 37.2 % (37.0-47.0); HEMOGLOBIN 12.4 gm/dL (12.0-15.0); MCH 31.2 pg (26.0-34.0); MCHC 33.3 g/dL (28.0-37.0); MCV 93.5 fL (80.0-100.0); RBC 3.98 mil/uL (4.20-5.00); WBC 7.9 thou/uL (4.0-11.0)
[2018-05-10 05:07] LABS: CALCIUM 8.8 mg/dL (8.5-10.1)
[2018-05-10 05:17] VITALS: BP 179/102
[2018-05-10] MEDS ORDERED: CLONIDINE HCL0.2 M2 PO (05:47)
[2018-05-10 09:08] VITALS: BP 178/101
[2018-05-10] MEDS ORDERED: SEROQUEL 25 MG25 M1 PO (11:16)
[2018-05-10] MEDS ORDERED: SEROQUEL 100 M100 M1 PO (11:16)
[2018-05-10 11:22] VITALS: BP 178/101
--- NOTE | 2018-05-10 12:22 | NUR ---
PT WAS DISCHARGED AND WAS TRYING TO STEAL 2 LARGE BAGS OF GOWNS. GUI DEVELOPER ARIANA AND MYSELF WERE IN ROOM AND INSTRUCTED PATIENT TO LEAVE THE GOWNS. SHE WAS TRYING TO PUSH PAST AND TAKE GOWNS. EVENTUALLY HER SPOUSE KILO THREW GOWNS IN TRASH.. KILO LOOKED AND ME AND SAID ARIANA AND I WERE GOING TO GET HURT. SECURITY WAS CALLED AND STEPHANIE ESCORTED SPOUSE AND PATIENT OUT OF ROOM. DR JONES WAS NOTIFIED WAS FRANC LAYNE CLINICAL DATA ANALYST.
== END 2018-05-10 12:25 | disposition home or self-care (01) | DRG 638 ==
LOC: ER 02:59 → EROBS 05:55 → 3W 07:41
PROVIDERS: Emergency Medicine; Hospitalist; ADMIT Internal Medicine
DX: E10.649 Type 1 diabetes mellitus with hypoglycemia without coma (principal); K86.1 Other chronic pancreatitis; G93.40 Encephalopathy, unspecified; F11.20 Opioid dependence, uncomplicated; R10.9 Unspecified abdominal pain; F41.9 Anxiety disorder, unspecified; F60.3 Borderline personality disorder; F25.9 Schizoaffective disorder, unspecified; F29 Unspecified psychosis not due to a substance or known physiological condition; G89.4 Chronic pain syndrome; I10 Essential (primary) hypertension; E10.40 Type 1 diabetes mellitus with diabetic neuropathy, unspecified; Z88.5 Allergy status to narcotic agent; Z88.8 Allergy status to other drugs, medicaments and biological substances
CPT/HCPCS: 10879

== ENCOUNTER 2018-06-05 22:15 | Inpatient (IN) | payer BC ==
[~2018-06-05] VITALS: Ht 162.6 cm; Wt 86.2 kg
[~2018-06-05 22:15] MED LIST changes: +PHENERGAN12.5 M2 RECTAL; +SEROQUEL 100 M100 M1 PO; +SEROQUEL 25 MG25 M1 PO
[2018-06-05 22:26] VITALS: BP 173/112
--- NOTE | 2018-06-05 22:26 | NUR ---
HIGINIO HAS REQUESTED THAT SECURITY GO THROUGH BELONGINGS TO SEE IF INSULIN IS PRESENT IN BELONGINGS, TALKED WITH PT AND SO, SHE IS AWARE AND IS OK WITH THAT. LINENS HAVE BEEN REMOVED FROM ROOM
[2018-06-05 23:02] LABS: URINE BILIRUBIN NEGATIVE (Negative); URINE BLOOD TRACE (Negative); URINE CLARITY CLEAR; URINE COLOR YELLOW; URINE GLUCOSE-RANDOM* NEGATIVE (Negative); URINE KETONES NEGATIVE (Negative); URINE LEUKOCYTES-REFLEX NEGATIVE (Negative); URINE NITRITE-REFLEX NEGATIVE (Negative); URINE PROTEIN (DIPSTICK) NEGATIVE (Negative); URINE SPECIFIC GRAVITY <= 1.005 (1.005-1.035); URINE UROBILINOGEN 0.2 E.U./dl (0.2-1.0)
[2018-06-05 23:06] LABS: ABSOLUTE NEUTROPHILS 3.7 thou/uL (1.4-8.2); EOSINOPHILS 0.6 % (0.0-3.0); HEMATOCRIT 38.9 % (37.0-47.0); LYMPHOCYTES 47.1 % (24.0-44.0); MCH 31.2 pg (26.0-34.0); MCHC 33.5 g/dL (28.0-37.0); MCV 93.1 fL (80.0-100.0); MONOCYTES 5.4 % (1.0-8.0); PLATELET COUNT 358 thou/uL (150-400); POLYS 45.9 % (36.0-66.0); RBC 4.18 mil/uL (4.20-5.00); RDW 13.7 % (10.5-14.5)
[2018-06-05 23:13] LABS: CALCIUM 9.2 mg/dL (8.5-10.1); POTASSIUM 3.4 mmol/L (3.5-5.1)
[2018-06-05 23:19] LABS: ALBUMIN 3.7 g/dL (3.4-5.0); TOTAL BILIRUBIN 0.1 mg/dL (<0.1-1.0); TOTAL PROTEIN 7.7 g/dL (6.4-8.2)
[2018-06-05] MEDS ORDERED: PROMS25 WY RECTAL (23:59)
[2018-06-06] VITALS (7 sets, daily range): BP systolic 148–176; BP diastolic 86–107
[2018-06-06 00:31] LABS: AMP/METHAMP Negative (Negative); BARBITURATES Negative (Negative); BENZODIAZEPINES Negative (Negative); COCAINE Negative (Negative); METHADONE Negative (Negative); OPIATES POSITIVE (Negative); PCP POSITIVE (Negative)
--- NOTE | 2018-06-06 05:34 | NUR ---
PATIENT ARRIVED ON THE FLOOR ON 06/06/18 AT 0245 HRS. UPON ARRIVAL, PATIENT IS AOX4. PATIENT WALKED TO HER BED AND HAS A STEADY GAIT. PATIENT WAS ORIENTED TO THE ROOM. PATIENT HAS ABD PAIN AND IS REQUESTING PAIN MEDS. THE NIGHT PROGRESSED, PATIENT WAS GIVEN PAIN MEDS. PATEDT WAS LABE TO EAT A LARGE DINNER. BLOOD SUGAR IS BEING MONITORED CLOSELT. PATIENT DOES NOT WANT SCDS OR FALL RISK BAND. PT CALLS FOR HELP APPROPIATELY.
[2018-06-06 06:30] LABS: CALCIUM 8.4 mg/dL (8.5-10.1); CREATININE 1.1 mg/dL (0.6-1.0)
[2018-06-06 06:51] LABS: POTASSIUM 4.8 mmol/L (3.5-5.1)
--- NOTE | 2018-06-06 19:34 | NUR ---
Assumed care of patient at 0700. Patient states her belly pain in ongoing, but oral oxycodone given x1 today relieved it somewhat. She prefers to be left alone with door closed, dark room, no visitors. Nursing in for assessments and meds, otherwise she does not call for anything. Up ad christianne to bathroom. Monitoring blood sugar control, tolerating PO diet without difficulty. Continue to monitor.
--- NOTE | 2018-06-07 06:27 | NUR ---
PATIENT IS ALERT AND ORIENTED X 4 AND IS UP AD LEO. PATIENT SLEPT MOST OF THE NIGHT AND FEELS WELL RESTED. PATIENT REPORTED SOME PAIN AND IT WAS TREATED WITH PAIN MEDS. PT ALSO REPORTED THAT SHE HAD A BM. HYPOGLYCEMIA HAS NOT BEEN AN ISSUE THIS SHIFT. PATIENT IS PROGRESSING TOWADS DISCHARGE GOALS.
[2018-06-07 07:55] VITALS: BP 160/118
[2018-06-07 08:52] VITALS: BP 160/118
--- NOTE | 2018-06-07 08:56 | NUR ---
This nurse, training RN, RATTLE LEAK AND SQUEAK REPAIRER, and physician were all in room this AM while doctor discussed discharge with patient. Patient was agreeable with discharge plan. After physician left the floor patient started to become agitated and stated they shouldn't be discharged. Blood pressure was elevated. Training RN notified physician and was instructed to continue with discharge plan and stated the patient needed to follow up with their primary care doctor. Training RN DC'd IV. Physician put in discharge orders. The patient took own tele off and eloped before discharge paperwork was brought in. Discharge orders in system for less than 30 minutes before patient eloped.
== END 2018-06-07 09:00 | disposition left against medical advice (07) | DRG 638 ==
LOC: ER 22:15 → EROBS 06-06 01:05 → 4W 06-06 02:34
PROVIDERS: Emergency Medicine; Nurse Practitioner Family; ADMIT Hospitalist
DX: E11.649 Type 2 diabetes mellitus with hypoglycemia without coma (principal); F11.20 Opioid dependence, uncomplicated; K86.1 Other chronic pancreatitis; I10 Essential (primary) hypertension; E11.42 Type 2 diabetes mellitus with diabetic polyneuropathy; F60.9 Personality disorder, unspecified; F41.9 Anxiety disorder, unspecified; F32.9 Major depressive disorder, single episode, unspecified; E66.9 Obesity, unspecified; K59.00 Constipation, unspecified; G89.4 Chronic pain syndrome; F20.9 Schizophrenia, unspecified; F19.10 Other psychoactive substance abuse, uncomplicated; Z68.32 Body mass index [BMI] 32.0-32.9, adult; Z87.891 Personal history of nicotine dependence; Z90.411 Acquired partial absence of pancreas; Z90.81 Acquired absence of spleen; Z79.4 Long term (current) use of insulin; Z79.899 Other long term (current) drug therapy; Z88.5 Allergy status to narcotic agent; Z88.8 Allergy status to other drugs, medicaments and biological substances
CPT/HCPCS: 10045

== ENCOUNTER 2018-08-19 03:37 | Inpatient (IN) | payer BC ==
[~2018-08-19] VITALS: Ht 165.1 cm; Wt 81.7 kg
[~2018-08-19 03:37] MED LIST changes: +PROMS25 WY RECTAL
[2018-08-19 03:47] VITALS: BP 172/98
[2018-08-19 04:17] LABS: URINE BILIRUBIN NEGATIVE (Negative); URINE BLOOD NEGATIVE (Negative); URINE CLARITY CLEAR; URINE COLOR YELLOW; URINE GLUCOSE-RANDOM* NEGATIVE (Negative); URINE KETONES NEGATIVE (Negative); URINE LEUKOCYTES-REFLEX TRACE (Negative); URINE NITRITE-REFLEX NEGATIVE (Negative); URINE PROTEIN (DIPSTICK) NEGATIVE (Negative); URINE SPECIFIC GRAVITY <= 1.005 (1.005-1.035); URINE UROBILINOGEN 0.2 E.U./dl (0.2-1.0)
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
[2018-08-19 04:48] LABS: HEMATOCRIT 38.5 % (37.0-47.0); MCH 31.1 pg (26.0-34.0); MCHC 33.7 g/dL (28.0-37.0); MCV 92.4 fL (80.0-100.0); PLATELET COUNT 306 thou/uL (150-400); RBC 4.16 mil/uL (4.20-5.00); RDW 13.8 % (10.5-14.5); WBC 9.2 thou/uL (4.0-11.0)
[2018-08-19 04:51] LABS: ALBUMIN 3.9 g/dL (3.4-5.0); ANION GAP 10 mmol/L (7-16); BUN 12 mg/dL (7-18); CALCIUM 10.2 mg/dL (8.5-10.1); CHLORIDE 102 mmol/L (98-107); CO2 33 mmol/L (21-32); CREATININE 1.1 mg/dL (0.6-1.0); GLUCOSE 41 mg/dL (74-106); LIPASE 34 U/L (73-393); SGOT 23 U/L (15-37); SGPT 27 U/L (30-65); SODIUM 145 mmol/L (136-145); TOTAL BILIRUBIN 0.3 mg/dL (<0.1-1.0); TOTAL PROTEIN 8.2 g/dL (6.4-8.2); TROPONIN-I <0.06 ng/mL (<0.06)
[2018-08-19 04:52] LABS: POTASSIUM 2.8 mmol/L (3.5-5.1)
[2018-08-19 05:01] LABS: AMP/METHAMP Negative (Negative); BARBITURATES Negative (Negative); BENZODIAZEPINES Negative (Negative); COCAINE Negative (Negative); METHADONE Negative (Negative); OPIATES Negative (Negative); PCP POSITIVE (Negative)
[2018-08-19 05:33] LABS: ABSOLUTE NEUTROPHILS 2.9 thou/uL (1.4-8.2); ANISOCYTOSIS 1+; POIKILOCYTOSIS 1+; TARGET CELLS 1+
[2018-08-19 05:34] LABS: PLATELET ESTIMATE NORMAL
[2018-08-19 05:40] VITALS: BP 160/94
[2018-08-19 06:03] VITALS: BP 143/84
[2018-08-19 06:10] VITALS: BP 169/95
--- NOTE | 2018-08-19 06:21 | NUR ---
PT ARRIVED TO UNIT AT 0610 ACCOMPANIED BY ED STAFF. PT REFUSES TO ANSWER QUESTIONS AT THIS TIME SHE STATES, "MY PAIN HAS NOT BEEN ADDRESS." AFTER A LOT OF PERSUASION PT AGREE TO PUT ON HER TELE LEADS. PT STATES THAT, "I HAVE A SISTER WHO IS A COURT CLERK AND I WILL CALL HER BECAUSE IT IS UNETHICAL THAT MY PAIN HAS NOT BEEN TREATED." WILL ATTEMPT TO ASSESS PT, HOWEVER IT IS DIFFICULT GIVEN THE DEGREE OF UNCOOPERATION.
--- NOTE | 2018-08-19 08:04 | EKG ---
[place] [address] [facility] [place] [address] ELECTROCARDIOGRAM REPORT Name: FITO PATTERSON Evelyne Room #: 351-P ADM IN M.R.#: [id number] ������������������ Admission: 08/19/18 ������������������ Attend Phys: Bernadine Lerma Discharge: ������������������ Date of : 72 Report #: [id number] ����������������������������������������������������������������� [id number] THIS REPORT FOR: //name// [facility] ED Test Date: 2018-08-19 Test Time: 04:23:40 Pat Name: FITO PATTERSON Department: Room: [facility] Gender: F Lawn Service Worker: lucinda : 1970 Requested By: Guanaco Rome Order Number: [id number] MD: Randall Potter Measurements Intervals [place] Rate: 94 P: 59 GA: 183 QRS: 49 QRSD: 89 T: -33 QT: 372 QTc: 466 Interpretive Statements Sinus rhythm Probable left atrial enlargement Probable left ventricular hypertrophy Borderline T abnormalities Compared to ECG 04/11/2018 00:01:39 No significant change was found Electronically Signed On 08-19-2018 8:04:33 CDT by Randall Potter [email or web address] ��������������������������������������������� <ELECTRONICALLY SIGNED> ���������������������������������������� By: Randall Potter MD, [facility] ��������������������������������������������� 08/19/18 0804 0423 0423 Randall Potter MD, [facility] /EPI
--- NOTE | 2018-08-19 08:25 | NUR ---
ASSESSMENT: CM REVIEWED CHART AND MET WITH PATIENT AT THE BEDSIDE. PT WAS ADMITTED WITH HYPERGLYCEMIA/AB PAIN. PT REPORTS SHE LIVES IN A HOUSE WITH HER . PT REPORTS BEING FULLY INDEPENDENT WITH ADLS AND AMBULATION. PT REPORTS NO HX OF HH OR SNF. CM DISCUSSED ROLE. PT STATES SHE IS INDEPENDENT AND DOES NOT ANTICIPATE HAVING ANY NEEDS FROM CM. PLANS ARE FOR PATIENT TO DISCHARGE HOME ONCE MEDICALLY STABLE.
[2018-08-19 11:25] VITALS: BP 137/87
[2018-08-19] MEDS ORDERED: SENNA-TIME S T1 EACH PO (14:34)
[2018-08-19] MEDS ORDERED: MIRALAX17 GM PO (14:34)
--- NOTE | 2018-08-19 14:53 | NUR ---
AAOX4 PLEASANT BUT MOOD VERY LABILE CRYING TO LAUGHTING TO SINGING. ATE 100% OF BREAKFAST AND LUNCH. INAPPRIATE WITH COURIER DELIVERY DRIVER STATING HOW PRETTY SHE IS AND HOW MUCH SHE WOULD LIKE HER TO GIVE HER A BATH, SPREADING LEGS APART AND CARESSING HER HANDS DURING BLOOD GLUCOSE TESTING. PATIENT IS VERY CAPABLE TO BE INDEPEDENT WITH ADL'S. AT 1445 PATIENT IS DRESSED AND SPOUSE HERE TO PICK HER UP. REFUSED TO SIGN DISCHARGE PAPERWORK. IV REMOVED AND DISCHARGED TO [employer] OUTSIDE VIA WHEELCHAIR.
[2018-08-19 17:06] LABS: GLYCOHEMOGLOBIN (HGB A1C) 7.2 % (4.8-5.6)
== END 2018-08-19 14:59 | disposition home or self-care (01) | DRG 638 ==
LOC: ER 03:37 → 3W 05:16 → EROBS 05:16 → 3W 06:05
PROVIDERS: Emergency Medicine; Nurse Practitioner; ADMIT Hospitalist
DX: E11.649 Type 2 diabetes mellitus with hypoglycemia without coma (principal); K86.1 Other chronic pancreatitis; I10 Essential (primary) hypertension; E87.6 Hypokalemia; F41.9 Anxiety disorder, unspecified; F32.9 Major depressive disorder, single episode, unspecified; N19 Unspecified kidney failure; F20.9 Schizophrenia, unspecified; G89.4 Chronic pain syndrome; E11.42 Type 2 diabetes mellitus with diabetic polyneuropathy; T40.605A Adverse effect of unspecified narcotics, initial encounter; Y92.89 Other specified places as the place of occurrence of the external cause; Z79.4 Long term (current) use of insulin; Z88.5 Allergy status to narcotic agent; Z88.1 Allergy status to other antibiotic agents; Z88.8 Allergy status to other drugs, medicaments and biological substances; Z87.891 Personal history of nicotine dependence; Z90.411 Acquired partial absence of pancreas
CPT/HCPCS: 10879

== ENCOUNTER 2018-11-11 23:58 | Inpatient (IN) | payer BC ==
[~2018-11-11] VITALS: Ht 162.6 cm; Wt 81.7 kg
[~2018-11-11 23:58] MED LIST changes: +MIRALAX17 GM PO; +SENNA-TIME S T1 EACH PO
[2018-11-12] VITALS (7 sets, daily range): BP systolic 151–196; BP diastolic 106–120
[2018-11-12 01:04] LABS: HEMATOCRIT 41.5 % (37.0-47.0); HEMOGLOBIN 13.7 gm/dL (12.0-15.0); MCH 31.1 pg (26.0-34.0); MCHC 32.9 g/dL (28.0-37.0); MCV 94.5 fL (80.0-100.0); PLATELET COUNT 366 thou/uL (150-400); RBC 4.39 mil/uL (4.20-5.00); RDW 13.7 % (10.5-14.5); WBC 10.8 thou/uL (4.0-11.0)
[2018-11-12 01:20] LABS: ALBUMIN 4.1 g/dL (3.4-5.0); ANION GAP 10 mmol/L (7-16); BUN 8 mg/dL (7-18); CALCIUM 10.5 mg/dL (8.5-10.1); CHLORIDE 102 mmol/L (98-107); CO2 32 mmol/L (21-32); CREATININE 0.9 mg/dL (0.6-1.0); LIPASE 43 U/L (73-393); POTASSIUM 3.4 mmol/L (3.5-5.1); SGOT 18 U/L (15-37); SGPT 18 U/L (30-65); SODIUM 144 mmol/L (136-145); TOTAL BILIRUBIN 0.2 mg/dL (<0.1-1.0); TOTAL PROTEIN 8.7 g/dL (6.4-8.2); TROPONIN-I <0.06 ng/mL (<0.06)
[2018-11-12 01:22] LABS: GLUCOSE 32 mg/dL (74-106)
[2018-11-12 01:33] LABS: ABSOLUTE NEUTROPHILS 3.6 thou/uL (1.4-8.2)
[2018-11-12 01:34] LABS: ANISOCYTOSIS 1+; LARGE PLATELETS FEW; PLATELET ESTIMATE NORMAL; POIKILOCYTOSIS 1+; POLYCHROMASIA 1+; SCHISTOCYTES 1+; TARGET CELLS 1+
[2018-11-12 02:17] LABS: URINE BILIRUBIN NEGATIVE (Negative); URINE BLOOD 1+ (Negative); URINE CLARITY CLEAR; URINE COLOR YELLOW; URINE GLUCOSE-RANDOM* NEGATIVE (Negative); URINE KETONES NEGATIVE (Negative); URINE LEUKOCYTES-REFLEX NEGATIVE (Negative); URINE NITRITE-REFLEX NEGATIVE (Negative); URINE PROTEIN (DIPSTICK) NEGATIVE (Negative); URINE UROBILINOGEN 0.2 E.U./dl (0.2-1.0)
[2018-11-12 02:32] LABS: AMP/METHAMP Negative (Negative); BARBITURATES Negative (Negative); BENZODIAZEPINES Negative (Negative); COCAINE Negative (Negative); METHADONE Negative (Negative); OPIATES Negative (Negative); PCP POSITIVE (Negative)
[2018-11-12 02:45] LABS: BACTERIA-REFLEX 1-9 Few /HPF (None Seen); MUCUS 0-3 Light strn/LPF (None Seen); SQUAMOUS 4-10 Moderate /LPF (0-3); URINE RBC 3-10 Few /HPF (0-2); URINE WBC-REFLEX 0-5 Rare /HPF (0-5)
[2018-11-12 02:46] LABS: CASTS None Seen /LPF (None Seen); CRYSTALS None Seen /LPF (None Seen)
--- NOTE | 2018-11-12 03:46 | NUR ---
PT CAME INTO THE ED WITH C/O ABDOMINAL PAIN AND NAUSEA. WHILE DOING THE INTAKE PT WANTED THIS NURSE TO CHECK HER BLOOD SUGAR, HER FSBS WAS 26, PT WAS ADMINSTERED 12.5MG D50 AND 1000ML OF D10 @ 100MLS/HR. PT SPENT HER TIME IN THE ED CRYING, AGITATED, AND LAUGHING. WHEN PT WAS TAKEN TO CCU SHE WAS HAPPY AND INVITED EVERYONE IN THE ED TO COME WATCH HER SING.
--- NOTE | 2018-11-12 05:39 | NUR ---
ASSESSMENT: PT ALERT AND ORIENT TIMES FOUR. MANIPULATOR, GRANDOSITY, AND LIKES TO CONFUSE STAFF WITH A BUNCH OF SOB STORIES ABOUT HER LIFE STORIES. SHE SINGS,. SHE CRIES, SHE HAS PPL IN BIG PLACES. BLOOD SUGARS WERE TAKEN EVERY HOUR AT THIS POINT. RANGING FROM 60-70, FOOD, GIVEN. BLOOD PRESSURE ELEVATED, CLONIDINE GIVEN. PT DENIES PAIN. SITTER AT THE BEDSIDE. PT WAS NOT ALLLOWED TO RUMMAGE THROUGH HER BELONINGS FOR FEAR OF PT GETTING HER HANDS ON MORE INSULIN OR EVEN WORSE, MORE PCP. WILL LEDGE MAN WAS AT THE BEDSIDE WITH ATTEMPTS TO ASSESS PT AND CONCERNS, PT WAS JUST TOO RUDE TO WILL TO EVEN TRY TO LISTEN TO HER JIBBER JABBER MUCH LONGER. ABOUT 1.5 HOURS THE PT WANTED TO APPOLOGIZE TO THIS RN AND LEDGE MAN ABOUT BEING RUDE BECAUSE SHE WAS NOT RAISED LIKE THAT NOR IS IT PART OF HER PERSONALITY. PT SOMETIMES REFUSES MEDS, STATES THAT SHE HAS HER CHURN DRILL OPERATOR ON THE LINE LISTENING TO ALL THAT IS GOING ON IN THE ROOM BETWEEN HERSELF AND STAFF MEMEBERS. SLOW PROGRESS TOWARDS DC GOALS. WILL CONTINUE TO MONITOR,.
[2018-11-12 07:20] LABS: CALCIUM 9.1 mg/dL (8.5-10.1); CREATININE 1.1 mg/dL (0.6-1.0); MAGNESIUM 1.8 mg/dL (1.8-2.4)
[2018-11-12 07:21] LABS: POTASSIUM 4.8 mmol/L (3.5-5.1)
[2018-11-12 11:23] LABS: CHOLESTEROL 161 mg/dL (<200); HDL CHOLESTEROL 36 mg/dL (>40); LDL CHOLESTEROL 114 mg/dL (<100); TC:HDL 4.5 Ratio (Not establshd); TRIGLYCERIDE 59 mg/dL (<150); VLDL 12 mg/dL (<40)
[2018-11-12 11:25] LABS: SERUM ASSESSMENT Clear
--- NOTE | 2018-11-12 11:54 | NUR ---
PATIENT IS ALERT AND ORIENTED X4. SHE IS EMOTINAL CRYING AND AT TIMES LAUGHING [facility] STAFF. SHE REMAINS ON 1:1 FOR HER SAFETY. BP ELEVATED AND MORNING MEDS GIVEN. S/B DR DUMONT AND DR REY, AND HER MEDS WERE ADJUSTED. AND WILL CONTINUE WITH POC.
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
--- NOTE | 2018-11-13 15:07 | EKG ---
[address] [address] ELECTROCARDIOGRAM REPORT Name: BALTAZAR PATTERSONTOAN Stubbs Room #: 217-P [facility] IN M.R.#: [id number] Admission: 11/12/18 Attend Phys: Karson Patel MD Discharge: 11/12/18 Date of : 72 Report #: [id number] THIS REPORT FOR: //name// [facility] ED Test Date: 2018-11-12 Test Time: 02:26:52 Pat Name: FITO PATTERSON Department: Room: [facility] [place][note 2] Gender: F Quality Compliance Coordinator: RAFAELA ESCOTO : 1970 Requested By: Guanaoc Rome Order Number: [id number] MD: Omi Vivar Measurements Intervals [place] Rate: 81 P: 57 UT: 190 QRS: 47 QRSD: 92 T: 60 QT: 400 QTc: 465 Interpretive Statements Sinus rhythm Probable left atrial enlargement Probable left ventricular hypertrophy Compared to ECG 08/19/2018 04:23:40 T-wave abnormality no longer present Electronically Signed On 11-13-2018 15:07:01 CDT by Omi Vivar [email or web address] <ELECTRONICALLY SIGNED> By: Omi Vivar MD 11/13/18 1507 5 5 Omi Vivar MD /EPI
== END 2018-11-12 14:32 | disposition left against medical advice (07) | DRG 638 ==
LOC: ER 23:58 → EROBS 11-12 02:26 → 2N 11-12 02:26
PROVIDERS: Emergency Medicine; Internal Medicine; Nurse Practitioner Acute Care; ADMIT Hospitalist
DX: E10.649 Type 1 diabetes mellitus with hypoglycemia without coma (principal); K86.1 Other chronic pancreatitis; I10 Essential (primary) hypertension; R10.9 Unspecified abdominal pain; G89.4 Chronic pain syndrome; K86.89 Other specified diseases of pancreas; E78.5 Hyperlipidemia, unspecified; E10.42 Type 1 diabetes mellitus with diabetic polyneuropathy; E87.6 Hypokalemia; F16.10 Hallucinogen abuse, uncomplicated; F20.9 Schizophrenia, unspecified; F60.9 Personality disorder, unspecified; Z79.4 Long term (current) use of insulin; Z90.81 Acquired absence of spleen; Z88.6 Allergy status to analgesic agent; Z88.8 Allergy status to other drugs, medicaments and biological substances; Z87.891 Personal history of nicotine dependence; Z53.21 Procedure and treatment not carried out due to patient leaving prior to being seen by health care provider
CPT/HCPCS: 10081

== ENCOUNTER 2019-01-11 23:41 | Emergency (ER) | payer BC ==
[~2019-01-11] VITALS: Ht 162.6 cm; Wt 81.7 kg
[2019-01-12 00:54] LABS: CALCIUM 9.4 mg/dL (8.5-10.1); CREATININE 0.7 mg/dL (0.6-1.0); POTASSIUM 3.6 mmol/L (3.5-5.1)
[2019-01-12 01:07] LABS: ALBUMIN 3.4 g/dL (3.4-5.0); TOTAL BILIRUBIN 0.2 mg/dL (<0.1-1.0); TOTAL PROTEIN 6.9 g/dL (6.4-8.2)
[2019-01-12 01:29] LABS: ABSOLUTE NEUTROPHILS 4.2 thou/uL (1.4-8.2); BASOPHILS 0.6 % (0.0-2.0); EOSINOPHILS 0.4 % (0.0-3.0); HEMATOCRIT 36.6 % (37.0-47.0); HEMOGLOBIN 11.8 gm/dL (12.0-15.0); LYMPHOCYTES 35.2 % (24.0-44.0); MCH 30.6 pg (26.0-34.0); MCHC 32.3 g/dL (28.0-37.0); MCV 94.8 fL (80.0-100.0); PLATELET COUNT 320 thou/uL (150-400); POLYS 55.8 % (36.0-66.0); RBC 3.86 mil/uL (4.20-5.00); RDW 14.7 % (10.5-14.5); WBC 7.6 thou/uL (4.0-11.0)
[2019-01-12 04:15] VITALS: BP 158/88
== END 2019-01-12 04:19 | disposition left against medical advice (07) ==
LOC: ER 23:41
PROVIDERS: Emergency Medicine
DX: R10.84 Generalized abdominal pain (principal); R10.32 Left lower quadrant pain; R11.2 Nausea with vomiting, unspecified; E11.40 Type 2 diabetes mellitus with diabetic neuropathy, unspecified; G89.29 Other chronic pain; I10 Essential (primary) hypertension; Z90.49 Acquired absence of other specified parts of digestive tract; Z90.81 Acquired absence of spleen; Z88.6 Allergy status to analgesic agent; Z88.5 Allergy status to narcotic agent; Z88.8 Allergy status to other drugs, medicaments and biological substances; Z87.891 Personal history of nicotine dependence

== ENCOUNTER 2019-01-16 00:15 | Emergency (ER) | payer BC ==
[~2019-01-16] VITALS: Ht 162.6 cm; Wt 83.0 kg
[2019-01-16 01:17] LABS: URINE BILIRUBIN NEGATIVE (Negative); URINE BLOOD 1+ (Negative); URINE CLARITY CLEAR; URINE COLOR YELLOW; URINE GLUCOSE-RANDOM* NEGATIVE (Negative); URINE KETONES NEGATIVE (Negative); URINE LEUKOCYTES-REFLEX NEGATIVE (Negative); URINE NITRITE-REFLEX NEGATIVE (Negative); URINE PROTEIN (DIPSTICK) NEGATIVE (Negative); URINE UROBILINOGEN 0.2 E.U./dl (0.2-1.0)
[2019-01-16 01:25] LABS: ABSOLUTE NEUTROPHILS 2.4 thou/uL (1.4-8.2); BASOPHILS 0.9 % (0.0-2.0); EOSINOPHILS 1.3 % (0.0-3.0); HEMATOCRIT 37.6 % (37.0-47.0); HEMOGLOBIN 12.3 gm/dL (12.0-15.0); MCH 30.9 pg (26.0-34.0); MCHC 32.6 g/dL (28.0-37.0); MCV 94.7 fL (80.0-100.0); MONOCYTES 9.1 % (1.0-8.0); PLATELET COUNT 336 thou/uL (150-400); POLYS 41.7 % (36.0-66.0); RBC 3.97 mil/uL (4.20-5.00); RDW 14.4 % (10.5-14.5); WBC 5.8 thou/uL (4.0-11.0)
[2019-01-16 01:39] LABS: BACTERIA-REFLEX None Seen /HPF (None Seen); MUCUS 0-3 Light strn/LPF (None Seen); SQUAMOUS 0-3 Few /LPF (0-3); URINE RBC 3-10 Few /HPF (0-2); URINE WBC-REFLEX 0-5 Rare /HPF (0-5)
[2019-01-16 01:40] LABS: CASTS None Seen /LPF (None Seen); CRYSTALS None Seen /LPF (None Seen)
[2019-01-16 01:41] LABS: ALBUMIN 3.8 g/dL (3.4-5.0); CALCIUM 9.4 mg/dL (8.5-10.1); CREATININE 0.9 mg/dL (0.6-1.0); TOTAL BILIRUBIN 0.2 mg/dL (<0.1-1.0); TOTAL PROTEIN 7.7 g/dL (6.4-8.2)
[2019-01-16 01:42] LABS: POTASSIUM 2.9 mmol/L (3.5-5.1)
[2019-01-16] MEDS ORDERED: NOVOLOG FL100 UNIT/M SUBQ (01:44)
[2019-01-16] MEDS ORDERED: PERCOCET 10-321 EAC1 PO (01:45)
[2019-01-16 04:22] VITALS: BP 175/103
== END 2019-01-16 04:30 | disposition left against medical advice (07) ==
LOC: ER 00:15
PROVIDERS: Emergency Medicine
DX: R10.31 Right lower quadrant pain (principal); R10.32 Left lower quadrant pain; R11.2 Nausea with vomiting, unspecified; I10 Essential (primary) hypertension; G89.29 Other chronic pain; E11.649 Type 2 diabetes mellitus with hypoglycemia without coma; Z87.891 Personal history of nicotine dependence; Z88.8 Allergy status to other drugs, medicaments and biological substances; Z88.3 Allergy status to other anti-infective agents; Z88.5 Allergy status to narcotic agent; Z79.899 Other long term (current) drug therapy; Z79.4 Long term (current) use of insulin; Z90.89 Acquired absence of other organs

== ENCOUNTER 2019-05-17 17:20 | Emergency (ER) | payer BC ==
[~2019-05-17] VITALS: Ht 162.6 cm; Wt 83.0 kg
[~2019-05-17 17:20] MED LIST changes: +BENAZEPRIL HCL40 MG PO; +BETAMETHASONE D50 G2 TOP; +CATAPRES0.1 MG PO; +CLONIDINE HCL0.1 MG PO; +CLOTRIMAZOLE 1%15 G1 TOP; +LOTENSIN40 MG PO; +METOPROLOL SUC100 MG PO; +METOPROLOL SUCC25 M1 PO; +NOVOLOG FL100 UNIT/M SUBQ; +ONDANSETRON HCL8 MG PO; +PANCRELIPASE PO; +PERCOCET 10-321 EAC1 PO
[2019-05-17 17:43] VITALS: BP 142/100
[2019-05-17 18:23] LABS: ABSOLUTE NEUTROPHILS 2.6 thou/uL (1.4-8.2); BASOPHILS 0.8 % (0.0-2.0); EOSINOPHILS 0.9 % (0.0-3.0); HEMATOCRIT 38.7 % (37.0-47.0); HEMOGLOBIN 12.7 gm/dL (12.0-15.0); LYMPHOCYTES 51.1 % (24.0-44.0); MCH 30.8 pg (26.0-34.0); MCHC 32.9 g/dL (28.0-37.0); MCV 93.6 fL (80.0-100.0); PLATELET COUNT 317 thou/uL (150-400); POLYS 40.2 % (36.0-66.0); RBC 4.13 mil/uL (4.20-5.00); WBC 6.6 thou/uL (4.0-11.0)
[2019-05-17 18:34] LABS: ALBUMIN 3.7 g/dL (3.4-5.0); ANION GAP 6 mmol/L (7-16); BUN 11 mg/dL (7-18); CALCIUM 8.8 mg/dL (8.5-10.1); CHLORIDE 102 mmol/L (98-107); CO2 31 mmol/L (21-32); CREATININE 0.8 mg/dL (0.6-1.0); DIRECT BILIRUBIN < 0.1 mg/dL (<0.1-0.2); LIPASE 19 U/L (73-393); POTASSIUM 3.7 mmol/L (3.5-5.1); SGOT 22 U/L (15-37); SGPT 20 U/L (30-65); SODIUM 139 mmol/L (136-145); TOTAL BILIRUBIN 0.2 mg/dL (<0.1-1.0); TOTAL PROTEIN 7.2 g/dL (6.4-8.2)
[2019-05-17 18:37] LABS: GLUCOSE 31 mg/dL (74-106)
--- NOTE | 2019-05-17 18:48 | NUR ---
PT. IVF D/C'D AT THIS TIME. PT. PROVIDED MEAL. WILL CHECK POC IN APPROX. ONE HOUR PER DR. AMBROCIO ORDERS.
[2019-05-17 19:15] VITALS: BP 146/76
[2019-05-17 19:30] LABS: URINE BILIRUBIN NEGATIVE (Negative); URINE BLOOD NEGATIVE (Negative); URINE CLARITY CLEAR; URINE COLOR YELLOW; URINE GLUCOSE-RANDOM* NEGATIVE (Negative); URINE KETONES NEGATIVE (Negative); URINE LEUKOCYTES-REFLEX NEGATIVE (Negative); URINE NITRITE-REFLEX NEGATIVE (Negative); URINE PROTEIN (DIPSTICK) NEGATIVE (Negative); URINE UROBILINOGEN 0.2 E.U./dl (0.2-1.0)
[2019-05-17 19:38] LABS: AMP/METHAMP Negative (Negative); BARBITURATES Negative (Negative); BENZODIAZEPINES Negative (Negative); COCAINE Negative (Negative); METHADONE Negative (Negative); OPIATES POSITIVE (Negative); PCP POSITIVE (Negative)
--- NOTE | 2019-05-17 20:00 | NUR ---
Total infused at 1999 on April is D5w 400 ml.
== END 2019-05-17 20:10 | disposition left against medical advice (07) | DRG 639 ==
LOC: ER 17:20 → EROBS 19:54 → ER 19:54 → EROBS 20:20
PROVIDERS: Emergency Medicine
DX: E11.649 Type 2 diabetes mellitus with hypoglycemia without coma (principal); I10 Essential (primary) hypertension; E11.42 Type 2 diabetes mellitus with diabetic polyneuropathy; G89.29 Other chronic pain; R10.9 Unspecified abdominal pain; Z90.81 Acquired absence of spleen; Z88.6 Allergy status to analgesic agent; Z88.8 Allergy status to other drugs, medicaments and biological substances; Z87.891 Personal history of nicotine dependence

== ENCOUNTER 2019-11-21 07:10 | Inpatient (IN) | payer BC ==
[~2019-11-21] VITALS: Ht 165.1 cm; Wt 83.5 kg
[2019-11-21 07:11] VITALS: BP 194/102
[2019-11-21] MEDS ORDERED: LISINOPRIL40 MG PO (07:20)
[2019-11-21 07:49] LABS: HEMATOCRIT 39.5 % (37.0-47.0); HEMOGLOBIN 13.4 gm/dL (12.0-15.0); MCH 31.8 pg (26.0-34.0); MCHC 33.9 g/dL (28.0-37.0); MCV 93.8 fL (80.0-100.0); RBC 4.22 mil/uL (4.20-5.00); RDW 14.6 % (10.5-14.5); WBC 9.8 thou/uL (4.0-11.0)
[2019-11-21 07:59] LABS: CALCIUM 9.5 mg/dL (8.5-10.1); CREATININE 0.8 mg/dL (0.6-1.0); POTASSIUM 3.5 mmol/L (3.5-5.1)
[2019-11-21 08:59] LABS: URINE BILIRUBIN NEGATIVE (Negative); URINE BLOOD NEGATIVE (Negative); URINE CLARITY CLEAR; URINE COLOR YELLOW; URINE GLUCOSE-RANDOM* 1+ (Negative); URINE KETONES NEGATIVE (Negative); URINE LEUKOCYTES-REFLEX TRACE (Negative); URINE NITRITE-REFLEX NEGATIVE (Negative); URINE PROTEIN (DIPSTICK) NEGATIVE (Negative); URINE UROBILINOGEN 0.2 E.U./dl (0.2-1.0)
[2019-11-21 09:01] LABS: SSA (PROTEIN CONFIRMATORY) NEGATIVE (Negative)
[2019-11-21 11:33] LABS: AMP/METHAMP Negative (Negative); BARBITURATES Negative (Negative); BENZODIAZEPINES Negative (Negative); COCAINE Negative (Negative); METHADONE Negative (Negative); OPIATES Negative (Negative); PCP POSITIVE (Negative)
--- NOTE | 2019-11-21 12:45 | NUR ---
VERBAL INSTRUCTIONS FROM DR ARAIZA TO HAVE SECURITY LOOK THROUGH PT'S BELONGINGS D/T PRIOR NOTES FROM ER VISITS STATING A SUSPICION FOR INJECTING SELF W/ INSULIN R/T HOW QUICKLY HER SUGAR FLUCTUATES DOWN AFTER BEING GIVEN IV SUGAR PRODUCTS; SECURITY LOOKED THROUGH HER THINGS BUT DID NOT FIND ANYTHING; PT THEN STATED SHE WANTED TO LEAVE OR FIRE DR ARAIZA AND SPEAK W/ DR OVALLE WHILE BECOMING TEARFUL STATING SHE "FEEL(S) LIKE A CRIMINAL"; DR OVALLE SPOKE WITH PT WHO AGREED TO STAY
[2019-11-21 12:50] VITALS: BP 180/105
[2019-11-21 13:11] VITALS: BP 197/109
[2019-11-21 13:57] VITALS: BP 178/96
--- NOTE | 2019-11-21 14:58 | NUR ---
Pt came to [place] from ED approx 1400. Pt up ad christianne. States she wants IV pain medications. Unless she receives IV pain meds she will not let the nurse start IV fluids or any other prescribed meds. Provider notified. Provider states no IV pain meds will be given. Pt notified. Pt states she amanda go AMA. Pt educated. Pt states she will leave and will not sign AMA paper. Informatics Coordinator and provider notified.
== END 2019-11-21 15:12 | disposition left against medical advice (07) | DRG 638 ==
LOC: ER 07:10 → EROBS 11:36 → 4S 13:38
PROVIDERS: Emergency Medicine; ADMIT Hospitalist; ATTEND Hospitalist
DX: E11.649 Type 2 diabetes mellitus with hypoglycemia without coma (principal); K86.1 Other chronic pancreatitis; I16.0 Hypertensive urgency; N83.202 Unspecified ovarian cyst, left side; E11.42 Type 2 diabetes mellitus with diabetic polyneuropathy; I10 Essential (primary) hypertension; F16.10 Hallucinogen abuse, uncomplicated; G89.29 Other chronic pain; Z87.891 Personal history of nicotine dependence; Z79.4 Long term (current) use of insulin; Z79.899 Other long term (current) drug therapy; Z88.1 Allergy status to other antibiotic agents; Z88.5 Allergy status to narcotic agent; Z88.8 Allergy status to other drugs, medicaments and biological substances
CPT/HCPCS: 10195